=== PATIENT | male | born 1970 | race African-American/Black ===

== ENCOUNTER 2016-08-11 15:16 | Emergency (ER) | payer OTHER ==
[2016-08-11 15:32] VITALS: BP 120/81
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
== END 2016-08-11 16:54 | disposition home or self-care (01) ==
LOC: UCCORT 15:16
DX: S80.12XA Contusion of left lower leg, initial encounter (principal); Y93.55 Activity, bike riding; Y92.9 Unspecified place or not applicable; Y99.9 Unspecified external cause status; I10 Essential (primary) hypertension; G47.30 Sleep apnea, unspecified; Z87.891 Personal history of nicotine dependence
CPT/HCPCS: 99212; G0463